=== PATIENT | female | born 1955 | race Caucasian/White ===

== ENCOUNTER 2017-06-21 00:40 | Emergency (ER) | payer OTHER ==
[2017-06-21 02:49] LABS: URINE PH (Dip) POC 5.5 (5.0-8.5)
[2017-06-21 02:49] LABS: URINE BLOOD (Dip) POC 2+ (NEGATIVE); URINE GLUCOSE (Dip) POC Negative (NEGATIVE); URINE KETONES (Dip) POC 2+ (NEGATIVE); URINE LEUKOCYTE EST (Dip) POC Negative (NEGATIVE); URINE NITRITE (Dip) POC Negative (NEGATIVE); URINE TOTAL PROTEIN POC Trace (NEGATIVE)
[2017-06-21 02:57] LABS: ADD MAN DIFF? NO
[2017-06-21 03:00] LABS: WHITE BLOOD COUNT 16.2 10^3/ul (4.8-10.8)
[2017-06-21 03:00] LABS: BASOPHILS % 0.2 % (0.0-2.0); EOSINOPHILS # 0.1 10^3/ul (0.0-0.5); EOSINOPHILS % 0.4 % (0.0-7.0); HEMATOCRIT 38.8 % (37.0-47.0); HEMOGLOBIN 13.2 g/dl (12.0-16.0); LYMPHOCYTES # 1.3 10^3/ul (0.8-2.9); LYMPHOCYTES % 8.1 % (15.0-51.0); MEAN CORPUSCULAR HEMOGLOBIN 30.8 pg (29.0-33.0); MEAN CORPUSCULAR VOLUME 90.7 fl (82.0-101.0); MEAN PLATELET VOLUME 9.3 fl (7.4-10.4); NEUTROPHIL # 13.7 10^3/ul (1.6-7.5); NEUTROPHILS % 84.8 % (39.0-77.0); PLATELET COUNT 339 10^3/UL (140-415); RED BLOOD COUNT 4.28 10^6/ul (4.20-5.40); RED CELL DISTRIBUTION WIDTH 13.5 % (11.5-14.5)
[2017-06-21 03:23] LABS: ALANINE AMINOTRANSFERASE 28 IU/L (13-69); ALBUMIN 3.9 g/dl (3.3-4.9); ALBUMIN/GLOBULIN RATIO 1.11; ALKALINE PHOSPHATASE 96 IU/L (42-121); ANION GAP 19 (8-16); ASPARTATE AMINO TRANSFERASE 23 IU/L (15-46); BILIRUBIN,INDIRECT 0.4 mg/dl (0-1.1); BILIRUBIN,TOTAL 0.4 mg/dl (0.2-1.3); BLOOD UREA NITROGEN 16 mg/dl (7-20); CALCIUM 8.8 mg/dl (8.4-10.2); CARBON DIOXIDE 26 mmol/L (21-31); CHLORIDE 108 mmol/L (97-110); CREATININE 0.57 mg/dl (0.44-1.00); GLUCOSE 125 mg/dl (70-220); LIPASE 68 U/L (23-300); POTASSIUM 3.7 mmol/L (3.5-5.1); SODIUM 149 mmol/L (135-144); TOTAL PROTEIN 7.4 g/dl (6.1-8.1)
[2017-06-21] MEDS: ONDANSETRON 4 MG INJ IV (03:25)
[2017-06-21] MEDS: LOPERAMIDE 2 MG CAP PO (03:25)
[2017-06-21] MEDS: morphine 2 MG INJ IV (03:25)
[2017-06-21] MEDS: SOD CHLORIDE 0.9% 1,000 ML IV (03:25)
[2017-06-21] MEDS: KETOROLAC 15 MG INJ IV (04:36)
== END 2017-06-21 05:56 | disposition home or self-care (01) ==
LOC: E/R 00:40
DX: E86.0 Dehydration (principal)
CPT/HCPCS: 36415; 74176; 80053; 81003; 83690; 85025; 96374; 96375; 99285-25

== ENCOUNTER 2017-08-02 06:55 | Day surgery (SDC) | payer OTHER ==
[2017-08-02] MEDS ORDERED: ISOSULFAN BLUE 1% 5 ML INJ SC (10:45)
[2017-08-02] MEDS ORDERED: FENTAnyl 50 MCG/ML VIAL (11:45)
[2017-08-02] MEDS ORDERED: SOD CHLORIDE 0.9% 1,000 ML IV (12:00)
[2017-08-02] MEDS ORDERED: CEFAZOLIN 2 GM/50 ML (PMX) 50 ML IVPB (12:00)
[2017-08-02] MEDS ORDERED: ROCURONIUM 50 MG INJ (12:02)
[2017-08-02] MEDS ORDERED: CEFAZOLIN 1 GM INJ (12:02)
[2017-08-02] MEDS ORDERED: PROPOFOL 20 ML (12:02)
[2017-08-02] MEDS ORDERED: LIDOCAINE 100 MG SYRINGE (12:02)
[2017-08-02] MEDS ORDERED: SUCCINYLCHOLINE CHLORIDE 100 MG/5 ML SYG IV (12:02)
[2017-08-02] MEDS ORDERED: SUGAMMADEX SODIUM 200 MG/2 ML VIAL IV (12:03)
[2017-08-02] MEDS ORDERED: PHENYLephrine (100 MCG/ML) 5ML SYG (12:04)
[2017-08-02] MEDS: BUPIVACAINE 0.25%/EPI (SDV) 30 ML INJ INJ (12:17)
[2017-08-02] MEDS ORDERED: ONDANSETRON 4 MG INJ IV ×2 (12:30→14:00)
[2017-08-02] MEDS ORDERED: FENTAnyl 50 MCG/ML VIAL IV ×2 (12:30)
[2017-08-02] MEDS ORDERED: DIPHENHYDRAMINE 50 MG INJ IV (12:30)
[2017-08-02] MEDS ORDERED: METOCLOPRAMIDE 10 MG INJ IV (12:30)
[2017-08-02] MEDS ORDERED: HYDROmorphONE (0.2 MG/ML) 10ML SYG IV ×3 (12:30)
[2017-08-02] MEDS ORDERED: HYDROCODONE/APAP (5/325) TAB PO (14:00)
[2017-08-02] MEDS ORDERED: KETOROLAC 30 MG INJ IV (14:00)
[2017-08-02] MEDS ORDERED: IBUPROFEN 600 MG TAB PO (14:00)
[2017-08-02] MEDS ORDERED: morphine 2 MG INJ IV (14:00)
[2017-08-02] MEDS: MEPERIDINE 25 MG INJ IV (15:10)
[2017-08-02] MEDS: HYDROCODONE/APAP (5/325) TAB PO (16:09)
== END 2017-08-02 17:20 | disposition home or self-care (01) ==
LOC: SDS 06:55
DX: C50.911 Malignant neoplasm of unspecified site of right female breast (principal); E66.9 Obesity, unspecified; Z68.27 Body mass index [BMI] 27.0-27.9, adult
CPT/HCPCS: 19301; 71045; 88309; 88331

== ENCOUNTER 2018-03-03 09:42 | Day surgery (SDC) | payer OTHER ==
[~2018-03-03 09:42] MED LIST: CEFAZOLIN 2 GM/50 ML (PMX) 50 ML IVPB; SOD CHLORIDE 0.9% 1,000 ML IV
[2018-03-03] MEDS ORDERED: CEFAZOLIN 1 GM INJ (11:16)
[2018-03-03] MEDS ORDERED: ONDANSETRON 4 MG INJ (11:16)
[2018-03-03] MEDS ORDERED: DEXAMETHASONE 4 MG/ML 1 ML INJ (11:16)
[2018-03-03] MEDS ORDERED: LIDOCAINE 2% (SDV) 5 ML INJ (11:16)
[2018-03-03] MEDS ORDERED: PROPOFOL 40 ML (11:16)
[2018-03-03] MEDS ORDERED: FAMOTIDINE 20 MG INJ (11:16)
[2018-03-03] MEDS ORDERED: FENTAnyl 50 MCG/ML VIAL (11:16)
[2018-03-03] MEDS ORDERED: MIDAZOLAM 1 MG/ML 2 ML INJ (11:16)
[2018-03-03] MEDS ORDERED: ALBUTEROL 0.083% (NEB) 2.5 MG/3 ML AMP HHN (12:00)
[2018-03-03] MEDS ORDERED: EPHEDrine SULFATE 50 MG/5 ML SYG IV (12:00)
[2018-03-03] MEDS ORDERED: LABETALOL HCL 20MG INJ IV (12:00)
[2018-03-03] MEDS ORDERED: hydrALAzine 20 MG INJ IV (12:00)
[2018-03-03] MEDS ORDERED: OXYCODONE/ACETAMINOPHEN (5/325) TAB PO (12:00)
[2018-03-03] MEDS ORDERED: morphine (1 MG/ML) 10ML SYRINGE IV (12:00)
[2018-03-03] MEDS ORDERED: FENTAnyl 50 MCG/ML VIAL IV (12:00)
[2018-03-03] MEDS ORDERED: ATROPINE 1 MG/10 ML SYRINGE IV (12:00)
[2018-03-03] MEDS ORDERED: DIPHENHYDRAMINE 50 MG INJ IV (12:00)
[2018-03-03] MEDS ORDERED: PHENYLephrine (100 MCG/ML) 5ML SYG (12:13)
[2018-03-03] MEDS: BUPIVACAINE 0.25%/EPI (MDV) 50 ML VIAL INJ (12:17)
[2018-03-03] MEDS ORDERED: KETOROLAC 30 MG INJ IV (13:00)
[2018-03-03] MEDS ORDERED: HYDROCODONE/APAP (5/325) TAB PO (13:00)
[2018-03-03] MEDS ORDERED: ONDANSETRON 4 MG INJ IV (13:00)
[2018-03-03] MEDS: ONDANSETRON 4 MG INJ IV (13:12)
[2018-03-03] MEDS: HYDROmorphONE 1 MG/5 ML IV SYRINGE IV (13:13)
[2018-03-03] MEDS: IBUPROFEN 600 MG TAB PO (13:34)
[2018-03-03] MEDS: HYDROCODONE/APAP (5/325) TAB PO (14:05)
== END 2018-03-03 14:30 | disposition home or self-care (01) ==
LOC: SDS 09:42
DX: Z85.3 Personal history of malignant neoplasm of breast (principal); N60.11 Diffuse cystic mastopathy of right breast; N60.21 Fibroadenosis of right breast
CPT/HCPCS: 19301; 88307